=== PATIENT | female | born 1955 | race Caucasian/White ===

== ENCOUNTER 2023-09-24 15:13 | Outpatient (RCR) | payer BC, SELFPAY | END 2023-09-25 07:35 | disposition home or self-care (01) | LOC: RPT 15:13 | PROVIDERS: ATTENDING PHYSICIAN Family Medicine | DX: S32.602D Unspecified fracture of left ischium, subsequent encounter for fracture with routine healing (principal); M54.16 Radiculopathy, lumbar region; M53.3 Sacrococcygeal disorders, not elsewhere classified | CPT/HCPCS: 97110 ==

== ENCOUNTER → 2024-05-24 09:10 | Outpatient (REF) | payer BC, SELFPAY | LOC: RCS 09:10 | PROVIDERS: ATTENDING PHYSICIAN Internal Medicine Cardiovascular Disease; FAMILY PHYSICIAN Family Medicine | DX: R07.89 Other chest pain (principal) | CPT/HCPCS: 93306 ==

== ENCOUNTER → 2024-06-01 08:19 | Outpatient (REF) | payer BC, SELFPAY | LOC: DHCBC/DCA 08:19 | PROVIDERS: ATTENDING PHYSICIAN Internal Medicine Cardiovascular Disease; FAMILY PHYSICIAN Family Medicine | DX: R07.89 Other chest pain (principal) | CPT/HCPCS: 78452; 93017; A9500 ==

== ENCOUNTER → 2024-06-13 11:05 | Outpatient (REF) | payer BC, SELFPAY ==
[2024-06-13 11:57] LABS: Blood Urea Nitrogen 17 mg/dl (7-17); Calcium 10.3 mg/dl (8.4-10.2); Carbon Dioxide 30 mmol/L (22-30); Chloride 101 mmol/L (98-107); Glucose 94 mg/dl (70-99); Potassium 4.5 mmol/L (3.5-5.1); Sodium 142 mmol/L (135-145); eGFR > 60.00
== END ==
LOC: REG 11:05
PROVIDERS: ATTENDING PHYSICIAN Internal Medicine Cardiovascular Disease; FAMILY PHYSICIAN Family Medicine
DX: R06.02 Shortness of breath (principal); R07.89 Other chest pain
CPT/HCPCS: 36415; 80048

== ENCOUNTER 2024-06-16 06:45 | Day surgery (SDC) | payer BC, SELFPAY | END 2024-06-16 09:35 | disposition home or self-care (01) | LOC: CATH 06:45 | PROVIDERS: ATTENDING PHYSICIAN Internal Medicine Cardiovascular Disease; FAMILY PHYSICIAN Family Medicine; OTHER PHYSICIAN Internal Medicine Cardiovascular Disease | DX: I08.1 Rheumatic disorders of both mitral and tricuspid valves (principal); R07.89 Other chest pain; R06.02 Shortness of breath; E78.2 Mixed hyperlipidemia | CPT/HCPCS: 93312; 93320; 93325 ==

== ENCOUNTER → 2024-09-05 12:21 | Outpatient (REF) | payer BC, SELFPAY ==
[2024-09-05 13:58] LABS: Blood Urea Nitrogen 18 mg/dl (7-17); Carbon Dioxide 29 mmol/L (22-30); Chloride 103 mmol/L (98-107); Glucose 87 mg/dl (70-99); Potassium 4.7 mmol/L (3.5-5.1); Sodium 141 mmol/L (135-145); eGFR > 60.00
== END ==
LOC: REG 12:21
PROVIDERS: ATTENDING PHYSICIAN Nuclear Medicine Nuclear Cardiology; FAMILY PHYSICIAN Family Medicine
DX: E78.2 Mixed hyperlipidemia (principal); R06.02 Shortness of breath; R07.89 Other chest pain
CPT/HCPCS: 36415; 80048

== ENCOUNTER 2024-09-06 16:09 | Emergency (ER) | payer BC, SELFPAY ==
[2024-09-06 16:14] VITALS: BP 176/97
[2024-09-06 16:58] LABS: ALT (SGPT) 20 U/L (0-35); AST (SGOT) 27 U/L (14-36); Albumin 4.3 g/dl (3.5-5.0); Alkaline Phosphatase 52 U/L (38-126); Blood Urea Nitrogen 22 mg/dl (7-17); Calcium 10.1 mg/dl (8.4-10.2); Carbon Dioxide 28 mmol/L (22-30); Chloride 104 mmol/L (98-107); Glucose 105 mg/dl (70-99); Potassium 3.9 mmol/L (3.5-5.1); Sodium 141 mmol/L (135-145); Total Bilirubin 0.6 mg/dl (0.2-1.3); Total Protein 6.5 g/dl (6.3-8.2); eGFR > 60.00
[2024-09-06 17:12] LABS: % Basophils 0.4 % (0-2); % Immature Granulocytes 0.1 % (0-0.5); % Lymphocytes 47.1 % (20.5-51.1); % Monocytes 8.8 % (1.7-9.3); % Neutrophils 42.6 % (42.2-75.2); Absolute Eosinophils 0.1 10^3/uL (0-0.7); Absolute Lymphocytes 3.2 10^3/uL (1.2-3.4); Absolute Monocytes 0.6 10^3/uL (0.1-0.6); Absolute Neutrophils 2.9 10^3/uL (1.4-6.5); Hematocrit 36.3 % (37.0-47.0); Hemoglobin 12.1 g/dL (12.0-16.0); Mean Corp Hgb Conc. 33.3 g/dL (33.0-37.0); Mean Corpuscular Hgb 30.6 pg (27.0-31.0); Mean Corpuscular Volume 91.9 fL (81.0-99.0); Mean Platelet Volume 10.6 fL (7.4-10.4); Nucleated Red Blood Cells % 0 %; Platelet Count 168 10^3/uL (130-400); Red Blood Cell Count 3.95 10^6/uL (4.20-5.40); Red Cell Dist. Width 13.1 % (11.5-14.5); Troponin I < 0.012 ng/ml; White Blood Cell Count 6.8 10^3/uL (4.8-10.8)
[2024-09-06 19:30] VITALS: BP 153/86; BP 158/95; BP 163/87; PULSE 69; PULSE 75; PULSE 80
--- NOTE | 2024-09-06 19:31 | ED.GENMED ---
History of Present Illness
General
Chief Complaint: Chest Pain
Source: patient
Exam Limitations: none
Time Seen by Provider: 09/06/24 19:18
History of Present Illness
History of Present Illness:
This is a 69 year old female that comes in with c.o chest pain and lightheadedness. States that she has been seeing Dr. Flanagan for chest pain. Sates that she was told that she has a slight Mitral valve leak. States that she was monitored and told
that she has PVC's and PAC's. Today she started with some chest pain with lightheadedness and heavy breathing. States that she also has a headache. Denies any fever, chills, abd pain, nausea, vomiting, diarrhea, urinary burning.
Past History
Past History
ED Past Medical History: Hypercholesterolemia (Takes pravastatin but not on a regular basis), Seizures (Seizures during childhood), Psychiatric (Has felt depressed, got a prescription for Lexapro from her PMD but took it twice and did not feel well
after each dose so she has not taken it.) and Other (Endometriosis, Headache, epilepsy as child, fracture pelvis)
ED Past Surgical History: Orthopedic (Left rotator cuff repair, ) and Other (left breast biopsy)
Social History
Tobacco: Non-smoker
Alcohol: Occasional
Drug: None
Personal: Single
Living: with family
Employment: Employed
Family History
Family History: Cancer (Colon CA-mother)
Review of Systems
Review of Systems
All Other Systems: ROS reviewed and negative except as documented in HPI and ROS
Constitutional: Reports no symptoms; Denies fever or chills
EENT: Reports no symptoms
Respiratory: Reports trouble breathing; Denies cough
Cardiac: Reports chest pain
ABD/GI: Reports no symptoms; Denies abdominal pain, nausea, vomiting or diarrhea
: Reports no symptoms; Denies dysuria, frequency or urgency
Musculoskeletal: Reports no symptoms
Skin: Reports no symptoms
Neurological: Reports headache and other (Lightheaded); Denies dizzy
Psychiatric: Reports no symptoms
Phy Exam
General Physical Exam
General Presentation: well appearing and no apparent distress
General age: appears stated age
General Skin: warm and dry
General Habitus: normal
General Mental: alert
General Hydration: appears well hydrated
ENT Exam
ENT Exam: TM's normal, pharynx normal and neck supple
Eye Exam
Eye Exam: EOMI
Cardiovascular Exam
Cardiovascular Exam: regular rate/rhythm, no edema and normal peripheral pulses
Pulmonary Exam
Pulmonary Exam: lungs clear, no respiratory distress, no rales, chest non tender, no crackles, no rhonchi, no wheezing and no cough
Gastrointestinal Exam
Gastrointestinal Exam: normal bowel sounds, non tender, soft, no organomegaly, no pulsatile mass and non distended
Musculoskeletal Exam
Musculoskeletal Exam: full ROM and no edema
Skin Exam
Skin Exam: normal color, warm/dry, no rash and no petechia
Psychiatric Exam
Psychiatric Exam: normal mood/affect
Scores
Heart Score for Chest Pain Patients
STEMI patient?: No
History: Slightly or Non-Suspicious
ECG: Normal
Age: >/= 65 years
Risk Factors: No Risk Factors
Troponin: </= Normal Limit
Heart Score for Chest Pain Patients: 2
Heart Score Risk: 2.5% MACE over next 6 weeks
Course
Orders/Labs/Results
Orders:
Orders
09/06/24 16:09
EKG [Electrocardiogram (*1)] Urgent
Reason for Study: Chest Pain
09/06/24 16:10
EKG- Treatment ONCE
09/06/24 16:21
Complete Blood Count/With Diff Urgent
Comprehensive Metabolic Panel Urgent
Troponin I Urgent
09/06/24 19:30
Orthostatic VS- Treatment ONCE
0.9% Sodium Chloride 1000 ml [Nss] 1,000 ml IV BOLUS
CR Chest - 2 Views Urgent
Comment:
Reason For Exam: chest pain, SOB
09/06/24 19:31
Electrocardiogram (*1) Urgent
Reason for Study: Chest Pain
Other Reason for Exam: Repeat with Troponin
EKG- Treatment ONCE
09/06/24 19:52
Troponin I Urgent
Abnormal Lab Results
09/06/24
16:21
RBC 3.95 L 10^6/uL
(4.20-5.40)
Hct 36.3 L %
(37.0-47.0)
MPV 10.6 H fL
(7.4-10.4)
BUN 22 H mg/dl
(7-17)
Glucose 105 H mg/dl
(70-99)
09/06/24 16:21
09/06/24 16:21
Dehydration, Glucose nonfasting. Troponin <0.012
second troponin <0.012
Vital Signs
Initial and Last Documented VS:
Initial Vital Signs
Temp Pulse Resp BP Pulse Ox
98.4 F 87 18 176/97 97
09/06/24 16:14 09/06/24 16:14 09/06/24 16:14 09/06/24 16:14 09/06/24 16:14
Last Documented Vital Signs
Temp Pulse Resp BP Pulse Ox
98.4 F 69 19 176/97 95
09/06/24 16:14 09/06/24 20:55 09/06/24 20:57 09/06/24 16:14 09/06/24 20:55
MDM/Problems Addressed
Differential Diagnosis Includes:
Coronary syndrome, GERD
MDM/Problems Addressed:
This is a 69 year old female that comes in with c/o chest pain and heavy breathing. States that she was also lightheaded. States that she has been seeing Dr. Flanagan for some chest discomfort and is scheduled for a CT scan on Sep 26 as they felt
they saw some plaque.
Will check labs, chest X-ray, Orthostatics and a liter of fluid
Repeat ECG: rate 69. 1st degree heart block, normal axis. Normal QRS, negative for ischemia
back into see patient. Explained that her chest x-ray is normal along with her blood work. Will have patient follow up with the prison keeper and her Family doctor. patient to increase her water intake to 8-8oz glasses daily. Return with any concerns
.
Chronic conditions affecting care:
NA
Acute Exacerbation and/or Progression of Chronic Illness:
NA
*Radiology
Radiology exam reviewed: preliminary read by ED provider (Chest- negative for active disease. ) and radiology read reviewed (Chest-No acute cardiopulmonary process)
*Pulse Oximetry
Patient hypoxic: no
*EKG
Interpreted by ED Provider?: Yes
Heart Rate: 83
Rate: normal
Rhythm: sinus, PAC's and PVC's
[place]: normal axis
QRS Pattern: normal QRS
Ischemia: no ischemia
*Critical Care Note
Total Time (30-74mins, 75-104mins- exclusive of procedures): Not Applicable
ED Attending Note
-
Portions of this chart may have been created with voice recognition software.� Occasional wrong word or��sound alike� substitutions may have occurred due to the inherent limitations of voice recognition software.
Discharge Plan
Departure
Patient Disposition: Home (Routine Discharge)
Date of Disposition: 09/06/24
Time of Disposition: 21:13
Patient with high blood pressure during this ER visit?: Yes
Condition: Good
Covid-19: Not Applicable
Discharge Problem:
Chest pain, SOB (shortness of breath)
Instructions: Shortness of Breath, Adult ED, Chest Pain PCP Follow Up, BLOOD PRESSURE
Prescriptions:
No Action
pravastatin 40 mg tablet
40 mg PO DAILY
multivitamin Tablet
1 tab PO DAILY
cholecalciferol (vitamin D3) [Vitamin D3] 25 mcg (1,000 unit) Capsule
25 mcg PO DAILY
coenzyme Q10 [CoQ-10] 100 mg Capsule
100 mg PO DAILY
ibandronate [Boniva] 150 mg Tablet
150 mg PO QMONTH
Referrals:
Richard Brink MD [Family Provider] - Follow up in 2-3 days
Activity Restrictions/Additional Instructions:
As discussed, your blood work shows some dehydration. Your ECG are normal along with both Troponin. Your chest x-ray is normal. Please follow up with the family doctor for recheck and your Volcanologist. Please increase your water intake to 8-8oz
glasses daily. IF YOU HAVE INCREASED OR CHANGING PAIN, OR YOU HAVE ANY OTHER CONCERNS PLEASE RETURN TO THE EMERGENCY ROOM.
Interventions
Interventions:
*Risk Screen - Suicide Last Done: 09/06/24 16:14
*General Assessment Last Done: 09/06/24 16:14
*Neglect/Abuse Screening Last Done: 09/06/24 16:14
ED- Fall Risk Assessment Last Done: 09/06/24 19:30
*ED COVID-19 Vaccine History Last Done: 09/06/24 16:14
ED- Cardiac Assessment Last Done: 09/06/24 19:30
Discharge Date and Time
Print Language: TURKMEN
[2024-09-06] MEDS: NSS 1000 IV (19:51)
[2024-09-06 20:23] LABS: Troponin I < 0.012 ng/ml
[2024-09-06 21:00] VITALS: BP 154/74
[2024-09-06 21:10] VITALS: BP 133/81
[2024-09-06 21:14] VITALS: BP 154/76
[2024-09-06 21:20] VITALS: BP 149/78
== END 2024-09-06 21:46 | disposition home or self-care (01) ==
LOC: EMR 16:09
PROVIDERS: Clinical Nurse Specialist Family Health; Student in an Organized Health Care Education/Training Program; EMERGENCY PHYSICIAN Emergency Medicine; FAMILY PHYSICIAN Family Medicine
DX: R07.89 Other chest pain (principal); R06.02 Shortness of breath; I49.3 Ventricular premature depolarization; E78.00 Pure hypercholesterolemia, unspecified; E86.0 Dehydration; G40.909 Epilepsy, unspecified, not intractable, without status epilepticus; Z80.0 Family history of malignant neoplasm of digestive organs
CPT/HCPCS: 99283; 71046; 80053; 84484; 85025; 93005

== ENCOUNTER → 2024-09-26 09:53 | Outpatient (REF) | payer BC, SELFPAY | LOC: RAD 09:53 | PROVIDERS: ATTENDING PHYSICIAN Internal Medicine Cardiovascular Disease; FAMILY PHYSICIAN Family Medicine | DX: R06.02 Shortness of breath (principal); R07.9 Chest pain, unspecified; R94.39 Abnormal result of other cardiovascular function study | CPT/HCPCS: 75574; Q9967 ==

== ENCOUNTER → 2024-10-03 08:49 | Outpatient (REF) | payer BC, SELFPAY | LOC: RAD 08:49 | PROVIDERS: ATTENDING PHYSICIAN Internal Medicine Cardiovascular Disease; FAMILY PHYSICIAN Family Medicine | DX: R93.89 Abnormal findings on diagnostic imaging of other specified body structures (principal) | CPT/HCPCS: 71260; Q9967 ==

== ENCOUNTER 2024-10-24 06:14 | Day surgery (SDC) | payer BC, SELFPAY ==
[2024-10-10 11:35] LABS: INR 1.03; PT 13.8 Sec (11.4-14.6)
[2024-10-10 11:36] LABS: APTT 27.1 Sec (23.4-35.0)
[2024-10-10 13:43] VITALS: BMI 24.1
--- NOTE | 2024-10-21 17:10 | PTCARENOTE ---
KEYANA Hoyt) was notified that patient is DVT high risk and possibly allergic to adhesives.
[2024-10-24] VITALS (13 sets, daily range): BP systolic 108–166; BP diastolic 68–86; BMI 23.2
[2024-10-24] MEDS: SUBLIMAZE 25 MCG IV (10:32)
--- NOTE | 2024-10-24 10:58 | SUR.PHASEI ---
while waiting for sds availability - more alert - c/o right sided chest discomfort; difficulty rating - between 4-6/10 - hurts when taking deep breath- initially refuses pain med and was very sleepy and slow to waken after procedure. Agrees to
smaller dose of fentanyl - sleeps again and sats drop with fentanyl. when awake and deep breathing sats 95- 97%. Refuses further meds. Report to SDS when available.
--- NOTE | 2024-10-24 12:29 | W.PN.UPDATE ---
Update Note
Progress Note Update
Told by radiologist that post-bronchoscopy CXR shows a small right apical pneumothorax. Patient also having some R-sided chest discomfort. I was able to speak with her when I was notified of this x-ray finding. I immediately placed her on 50%
FiO2 via Ventimask. She is not having much pain and not requesting medications, although I did offer.
Will repeat CXR in 1.5-2 hours and if CXR shows worsening pneumothorax she will need to be hospitalized for continued observation with oxygen therapy and possible chest tube.
If right-sided pneumothorax is the same size or smaller then she can go home and we will repeat x-ray tomorrow.
I discussed this in front of her and her and they both verbalized understanding.
--- NOTE | 2024-10-24 14:23 | W.PN.UPDATE ---
Update Note
Progress Note Update
Patient had repeat CXR which shows marked improvement in right-sided apical pneumothorax. She was removed from the Venturi mask, and she feels well and is breathing comfortably on room air. She is stable for discharge home from same-day surgery,
and my office will arrange for CXR tomorrow. I advised to Yamile to call our office immediately if she has worsening shortness of breath, shoulder pain, back pain, chest pain, or lightheaded/dizziness. She verbalized understanding of this plan.
== END 2024-10-24 14:32 | disposition home or self-care (01) ==
LOC: GI 06:14
PROVIDERS: ATTENDING PHYSICIAN Internal Medicine Critical Care Medicine; FAMILY PHYSICIAN Family Medicine
DX: R91.8 Other nonspecific abnormal finding of lung field (principal); R06.02 Shortness of breath; R93.89 Abnormal findings on diagnostic imaging of other specified body structures; D14.31 Benign neoplasm of right bronchus and lung
CPT/HCPCS: 31629; 31628; 31623; 31624; 31627; 88172; 88173; 88305; 36415; 71045; 76000; 85610; 85730; 87015; 87070; 87102; 87116; 87205; 88112; 88177; 88333; 94640; C1887

== ENCOUNTER → 2024-10-25 10:13 | Outpatient (REF) | payer BC, SELFPAY | LOC: RAD 10:13 | PROVIDERS: ATTENDING PHYSICIAN Internal Medicine Critical Care Medicine; FAMILY PHYSICIAN Family Medicine | DX: J93.9 Pneumothorax, unspecified (principal) | CPT/HCPCS: 71046 ==

== ENCOUNTER 2025-01-10 06:25 | Day surgery (SDC) | payer BC, SELFPAY | END 2025-01-10 15:19 | disposition home or self-care (01) | LOC: GI 06:25 | PROVIDERS: ATTENDING PHYSICIAN Student in an Organized Health Care Education/Training Program | DX: Z12.11 Encounter for screening for malignant neoplasm of colon (principal); D12.2 Benign neoplasm of ascending colon; Z80.0 Family history of malignant neoplasm of digestive organs | CPT/HCPCS: 45385; 88305 ==

== ENCOUNTER → 2025-02-16 11:37 | Outpatient (REF) | payer BC, SELFPAY | LOC: RAD 11:37 | PROVIDERS: ATTENDING PHYSICIAN Nurse Practitioner Family; FAMILY PHYSICIAN Family Medicine | DX: M79.671 Pain in right foot (principal) | CPT/HCPCS: 73630 ==

== ENCOUNTER 2025-03-20 10:36 | Emergency (ER) | payer BC, SELFPAY ==
[2025-03-20] VITALS (8 sets, daily range): BP systolic 139–156; BP diastolic 66–90; BMI 24.7
[2025-03-20 12:02] LABS: % Basophils 0.4 % (0-2); % Eosinophils 0.4 % (0-6); % Immature Granulocytes 0.3 % (0-0.5); % Monocytes 5.3 % (1.7-9.3); % Neutrophils 65.6 % (42.2-75.2); Absolute Lymphocytes 2.2 10^3/uL (1.2-3.4); Absolute Monocytes 0.4 10^3/uL (0.1-0.6); Absolute Neutrophils 5.2 10^3/uL (1.4-6.5); Hematocrit 41.2 % (37.0-47.0); Hemoglobin 13.9 g/dL (12.0-16.0); Mean Corp Hgb Conc. 33.7 g/dL (33.0-37.0); Mean Corpuscular Hgb 30.3 pg (27.0-31.0); Mean Corpuscular Volume 89.8 fL (81.0-99.0); Nucleated Red Blood Cells % 0 %; Platelet Count 191 10^3/uL (130-400); Red Blood Cell Count 4.59 10^6/uL (4.20-5.40); Red Cell Dist. Width 13.2 % (11.5-14.5); White Blood Cell Count 7.9 10^3/uL (4.8-10.8)
[2025-03-20 12:56] LABS: ALT (SGPT) 29 U/L (0-35); AST (SGOT) 31 U/L (14-36); Albumin 4.8 g/dl (3.5-5.0); Alkaline Phosphatase 53 U/L (38-126); Blood Urea Nitrogen 19 mg/dl (7-17); Calcium 9.8 mg/dl (8.4-10.2); Carbon Dioxide 28 mmol/L (22-30); Chloride 106 mmol/L (98-107); Estimated Creatinine Clearance 76 ml/min; Glucose 105 mg/dl (70-99); Potassium 4.6 mmol/L (3.5-5.1); Sodium 139 mmol/L (135-145); Total Bilirubin 1.2 mg/dl (0.2-1.3); eGFR > 60.00
--- NOTE | 2025-03-20 15:36 | ED.GENMED ---
History of Present Illness
General
Chief Complaint: Dizziness
Source: patient and spouse
Time Seen by Provider: 03/20/25 12:56
History of Present Illness
History of Present Illness:
Note:
CHIEF COMPLAINT(S)
Dizziness and vertigo.
HISTORY OF PRESENT ILLNESS
The patient is a 70-year-old female with a past medical history of a leaking mitral valve, hypertension, diabetes, hyperlipidemia, and a previously fractured pelvis, presenting with complaints of dizziness and vertigo. Symptoms started during the
night when she woke up feeling very dizzy and sweating, described as a sensation of the room moving and being unable to focus. She has also experienced nausea and vomiting this morning. The patient reports feeling lightheaded and nearly losing her
balance upon standing. She has a known history of hypertension, diabetes, hyperlipidemia, and was advised by her primary care physician to visit the emergency department to rule out cardiac causes due to her mitral valve issue. She reports dizziness
alleviating slightly when lying still but worsening with movement. She denies chest pain and respiratory distress. She also reported experiencing ringing in the ears this morning.
ADDITIONAL HISTORY OBTAINED FROM SOURCES OTHER THAN THE PATIENT
According to the patient�s spouse, the heart condition was diagnosed roughly a year ago.
PHYSICAL EXAM
- Neurological exam: Conducted cerebellar testing, which was unremarkable. Assessments included dehzcb-ky-vzdn test, luev-kz-idcq test, and Rombergs test, all without noted deficits. No focal motor deficits. Negative pronator drift
- Cardiovascular: EKG was reviewed and appeared normal. Heart regular without murmur
Lungs clear to auscultation bilaterally
Abdomen no distention
Patient is awake alert and oriented x 3
- Ear exam: No abnormality noted upon examination of the external canal and tympanic membrane.
DIFFERENTIAL DIAGNOSIS
The Differential Diagnosis includes, in no particular order and is not limited to:
1. Benign paroxysmal positional vertigo (BPPV)
2. Vestibular neuritis
3. Labyrinthitis
4. M�ni�re�s disease
5. Acoustic neuroma
6. Transient ischemic attack (TIA)
7. Stroke
8. Cardiac arrhythmia
9. Dehydration or orthostatic hypotension
10. Inner ear infection
PLAN
The plan involves treating vertigo using vestibular rehabilitation maneuvers and potential pharmacotherapy to alleviate symptoms. A vestibular physical therapist may perform maneuvers to address suspected BPPV. The patient will also be provided with
medication to manage vertigo symptoms as needed. Cardiac issues are deemed unlikely based on the history and normal EKG findings. Further assessment and follow-up with a breast buffer and potential visits to a vestibular clinic may be recommended if
symptoms persist.
EKG
My independent EKG interpretation is:
- Rhythm: Normal sinus rhythm
- Heart Block: First-degree heart block
- [place]: Normal axis
- Ischemic Changes: No acute ischemic changes
- QRS Complex: Normal QRS
Disposition:
SUMMARY OF ENCOUNTER
The patient, a 70-year-old female with a significant medical history including a leaking mitral valve, hypertension, diabetes, and hyperlipidemia, presented to the emergency department with dizziness and vertigo that began during the night. Her
symptoms included a sensation of the room spinning, sweating, nausea, vomiting, lightheadedness, tinnitus, and sweating. The patients dizziness slightly improved when lying still but worsened with movement. She was evaluated to rule out cardiac
causes due to her mitral valve issue. The emergency department management included an EKG, which appeared normal, and physical examination was performed with no abnormalities in cerebellar function noted. The potential cause of dizziness was
assessed, considering a range of differential diagnoses.
DISPOSITION
The patient was discharged from the emergency department with a recommendation to follow up with her primary care physician and continue outpatient management with physical therapy.
PLAN
The plan involves the use of vestibular rehabilitation maneuvers to manage dizziness suspected to be caused by benign paroxysmal positional vertigo (BPPV) and prescribing meclizine as needed for vertigo symptom relief. The patient is to follow up
with physical therapy and her primary care doctor.
INDEPENDENT REVIEW OF LABS AND INTERPRETATION OF TESTS
My independent review of recent lab tests shows normal chemistry and CBC values. The patients old records, including a bronchoscopy from September 2024, were also reviewed.
MEDICATION RECONCILIATION
Meclizine was prescribed for as-needed use to manage the patients vertigo symptoms.
MEDICAL DECISION MAKING
1. Number & Complexity of Problems: Chronic conditions affecting care include a leaking mitral valve, hypertension, diabetes, and hyperlipidemia. Differential diagnoses considered include benign paroxysmal positional vertigo (BPPV), vestibular
neuritis, labyrinthitis, M�ni�re�s disease, acoustic neuroma, transient ischemic attack (TIA), stroke, and cardiac arrhythmia, among others.
2. Data Reviewed: Labs and EKG were independently reviewed. The patients history was corroborated with additional information from the spouse.
3. Risk: Although the patients presentation could warrant admission due to the complexity and potential cardiac involvement, outpatient management was deemed appropriate based on normal EKG findings, stable vital signs, and the ability to follow up
with outpatient care.
PATHOLOGIES TO CONSIDER
- Stroke, given the patients age, dizziness, and history of hypertension.
- Transient ischemic attack (TIA), due to sudden onset of symptoms and known risk factors.
- Cardiac arrhythmia, considering the patients mitral valve issue and hypertensive history.
Strongly favor BPPV. Outpatient follow-up. No clinical concerns for central vertigo
Past History
Past History
ED Past Medical History: Hypercholesterolemia (Takes pravastatin but not on a regular basis), Seizures (Seizures during childhood), Psychiatric (Has felt depressed, got a prescription for Lexapro from her PMD but took it twice and did not feel well
after each dose so she has not taken it.) and Other (Endometriosis, Headache, epilepsy as child, fracture pelvis)
ED Past Surgical History: Orthopedic (Left rotator cuff repair, ) and Other (left breast biopsy)
Social History
Tobacco: Non-smoker
Alcohol: Occasional
Drug: None
Personal: Single
Living: with family
Employment: Employed
Family History
Family History: Cancer (Colon CA-mother)
Phy Exam
Physical Exam
Physical Exam:
.
Course
Orders/Labs/Results
Orders:
Orders
03/20/25 10:39
EKG [Electrocardiogram (*1)] Urgent
Reason for Study: Vertigo / Dizzy
EKG- Treatment ONCE
03/20/25 11:49
CMP [Comprehensive Metabolic Panel] Urgent
Complete Blood Count/With Diff Urgent
03/20/25 13:17
PT Consult [Pt Eval And Treat] Urgent
Treatment: vertigo
Activity Level: Out of Bed- Ad Maura
03/20/25 15:58
Meclizine [Antivert] 25 mg PO NOW STA
Abnormal Lab Results
03/20/25
11:49
BUN 19 H mg/dl
(7-17)
Glucose 105 H mg/dl
(70-99)
03/20/25 11:49
03/20/25 11:49
Vital Signs
Initial and Last Documented VS:
Initial Vital Signs
Temp Pulse Resp BP Pulse Ox
98.1 F 69 18 139/90 97
03/20/25 10:38 03/20/25 10:38 03/20/25 10:38 03/20/25 10:38 03/20/25 10:38
Last Documented Vital Signs
Temp Pulse Resp BP Pulse Ox
98.1 F 65 15 142/66 96
03/20/25 10:38 03/20/25 14:30 03/20/25 14:30 03/20/25 14:29 03/20/25 15:37
*Pulse Oximetry
SaO2: 96
Oxygen Mode of Delivery: Room air
Patient hypoxic: no
*Critical Care Note
Total Time (30-74mins, 75-104mins- exclusive of procedures): Not Applicable
ED Attending Note
-
Portions of this chart may have been created with voice recognition software.� Occasional wrong word or��sound alike� substitutions may have occurred due to the inherent limitations of voice recognition software.
Discharge Plan
Departure
Patient Disposition: Home (Routine Discharge)
Date of Disposition: 03/20/25
Time of Disposition: 15:41
Patient with high blood pressure during this ER visit?: Yes
Discharge Problem:
Benign paroxysmal positional vertigo
Instructions: Vertigo (a Type of Dizziness) (DC), BLOOD PRESSURE
Prescriptions:
New
meclizine 25 mg tablet
25 mg PO TID PRN (Reason: dizziness) Qty: 20 0RF
No Action
pravastatin 40 mg tablet
40 mg PO DAILY
cholecalciferol (vitamin D3) [Vitamin D3] 25 mcg (1,000 unit) Capsule
25 mcg PO DAILY
coenzyme Q10 [CoQ-10] 100 mg Capsule
100 mg PO DAILY
ibandronate [Boniva] 150 mg Tablet
150 mg PO QMONTH
calcium 600 mg Capsule
600 mg PO DAILY
metoprolol tartrate 25 mg Tablet
25 mg PO HS
Referrals:
Richard Brink MD [Family Provider, [facility]]
Activity Restrictions/Additional Instructions:
[phone]
Please see vestibular therapy for outpatient management. Return immediately for vision changes, motor weakness, difficulty walking, vomiting that is intractable or intractable symptoms.
Interventions
Interventions:
*Risk Screen - Suicide Last Done: 03/20/25 11:33
*General Assessment Last Done: 03/20/25 11:33
*Neglect/Abuse Screening Last Done: 03/20/25 13:00
*ED- Fall Risk Assessment Last Done: 03/20/25 11:33
*ED COVID-19 Vaccine History Last Done: 03/20/25 11:33
ED- Neurological Assessment Last Done: 03/20/25 11:33
ED- Cardiac Assessment Last Done: 03/20/25 11:33
ED Swallowing Screen Last Done: 03/20/25 11:45
Discharge Date and Time
Print Language: DANISH
[2025-03-20] MEDS: ANTIVERT 25 MG PO (16:06)
--- NOTE | 2025-03-20 16:09 | EDRN ---
Reviewed discharge instructions with patient. Verbalized understanding. Ambulated with steady gait to the lobby.
== END 2025-03-20 16:11 | disposition home or self-care (01) ==
LOC: EMR 10:36
PROVIDERS: EMERGENCY PHYSICIAN Emergency Medicine; FAMILY PHYSICIAN Family Medicine
DX: H81.10 Benign paroxysmal vertigo, unspecified ear (principal); E11.9 Type 2 diabetes mellitus without complications; E78.00 Pure hypercholesterolemia, unspecified; I10 Essential (primary) hypertension; I44.0 Atrioventricular block, first degree
CPT/HCPCS: 99284; 80053; 85025; 93005

== ENCOUNTER → 2025-08-28 07:52 | Outpatient (REF) | payer BC, SELFPAY | LOC: HWRAD 07:52 | PROVIDERS: ATTENDING PHYSICIAN Internal Medicine Critical Care Medicine; FAMILY PHYSICIAN Family Medicine | DX: R91.8 Other nonspecific abnormal finding of lung field (principal) | CPT/HCPCS: 71250 ==